=== PATIENT | female | born 1985 | race Caucasian/White ===

== ENCOUNTER 2025-01-18 09:51 | Emergency (ER) | payer BC, SELFPAY ==
[2025-01-18 09:51] VITALS: BMI 60.5
[2025-01-18 10:08] VITALS: BP 207/102
[2025-01-18 10:48] VITALS: BP 173/114
--- NOTE | 2025-01-18 11:42 | ED.GENMED ---
History of Present Illness
General
Chief Complaint: Fall
Source: patient
Exam Limitations: none
Time Seen by Provider: 01/18/25 10:11
Nursing documentation reviewed up to this point in time: agreed with
History of Present Illness
History of Present Illness:
Patient is a 40-year-old female who presents to the emergency department for evaluation of headache and right shoulder pain after mechanical fall yesterday. Patient states that she was in the shower when she slipped falling backwards striking her
head on the water spot in her right scapular area on the tile. She denies any loss of consciousness. She has had lingering headache, brain fog, light sensitivity, and dizziness since. She also reports some pain in her right scapular area, which
is worse with movement.
She denies any vomiting, double vision, ataxia. No neck or back pain. No numbness/tingling or weakness in extremities. She has been ambulating without difficulty.
Patient does have a history of past concussions
Review of Systems
Review of Systems
Allergies reviewed?: Yes
All Other Systems: ROS reviewed and negative except as documented in HPI and ROS
Phy Exam
Physical Exam
Physical Exam:
Vitals: Hypertensive, otherwise vital signs stable. Afebrile
General: Patient is well appearing, no acute distress
Skin: Warm and dry, no rashes or lesions
Head: Normocephalic, atraumatic
Eyes: Sclera nonicteric. EOMs intact. Pupils equal round and reactive to light bilaterally. No nystagmus.
Throat: Protecting airway
Neck: Normal ROM, no cervical spine tenderness, no meningismus
Cardiac: Regular rate and rhythm, no murmurs.
Pulm: Normal respiratory effort, no wheezes, rales, rhonchi heard on exam
Abdomen: No abdominal tenderness.
Back: Mild reproducible tenderness in right scapular area without any obvious deformity or ecchymoses. Some tenderness noted in right posterior lower ribs without crepitus.
Extremities: No evidence of cyanosis or edema. Bilateral upper and lower extremities atraumatic and nontender with full range of motion. Palpable equal peripheral pulses bilaterally
Neuro: AAOx3. CN II-XII grossly intact. Normal [id number]. Strength 5/5 in bilateral upper and lower extremity
Psychiatric: Normal affect.
Course
Orders/Labs/Results
Orders:
Orders
01/18/25 11:02
CT Head W/o Iv Contrast Urgent
Comment:
Reason For Exam: fall, headstrike
Test Result ONCE
Ribs, Right 3 View W/PA Chest [CR Ribs-right 3 Vw W/pa Chest*] Urgent
Comment:
Reason For Exam: fall, rib pain
Shoulder, Right 2 Views [CR Shoulder - Right Min 2 View] Urgent
Comment:
Reason For Exam: fall, scapular pain
01/18/25 11:53
Beta Hcg Urine Qualitative Screen [HCG, Urine Qualitative Screen] Urgent
Date Specimen was Collected: 01/18/25
Time Specimen was Collected: 11:27
Vital Signs
Initial and Last Documented VS:
Initial Vital Signs
Temp Pulse Resp BP Pulse Ox
98.9 F 92 16 207/102 98
01/18/25 10:08 01/18/25 10:08 01/18/25 10:08 01/18/25 10:08 01/18/25 10:08
Last Documented Vital Signs
Temp Pulse Resp BP Pulse Ox
98.9 F 72 22 159/68 99
01/18/25 10:08 01/18/25 12:35 01/18/25 12:35 01/18/25 12:35 01/18/25 12:35
MDM/Problems Addressed
Differential Diagnosis Includes:
Not limited to: Concussion, contusion, doubt intracerebral hemorrhage, shoulder contusion, rib fracture, etc.
MDM/Problems Addressed:
40-year-old female with headache and right shoulder pain after mechanical slip and fall yesterday. No vomiting, visual changes, ataxia. Vitals and physical exam as above. Patient overall well-appearing in no apparent distress. She has no
evidence of significant head trauma. She is neurologically intact with any focal deficits on exam. Mild tenderness noted to right scapular area as well as right posterior ribs. Lungs clear bilaterally.
Based on mechanism and physical exam�low suspicion for acute traumatic intracranial injury. Did discuss holding off on CT scan and closely monitoring symptoms at home however after shared decision making, patient would feel most comfortable
obtaining CT scan in emergency department today.
ED plan: Head CT, x-ray of right shoulder and right rib series.
Update: Imaging without findings of acute traumatic injuries. Ultimately suspect concussion as well as contusion to right scapular region. She remains well-appearing in no distress. Feel stable for discharge home with supportive care and primary
care follow-up. Return precautions discussed. Patient comfortable with plan.
Chronic conditions affecting care:
N/A
Acute Exacerbation and/or Progression of Chronic Illness:
N/A
*Radiology
Radiology exam reviewed: radiology read reviewed
*Pulse Oximetry
SaO2: 98
Oxygen Mode of Delivery: Room air
Patient hypoxic: no
*EKG
Interpreted by ED Provider?: NA
*Masseur/Masseuse Interpretation
Rate: Masseur/Masseuse- N/A
*Critical Care Note
Total Time (30-74mins, 75-104mins- exclusive of procedures): Not Applicable
ED Attending Note
-
Portions of this chart may have been created with voice recognition software.� Occasional wrong word or��sound alike� substitutions may have occurred due to the inherent limitations of voice recognition software.
Discharge Plan
Departure
Patient Disposition: Home (Routine Discharge)
Date of Disposition: 01/18/25
Time of Disposition: 12:50
Patient with high blood pressure during this ER visit?: Yes
Condition: Good
Discharge Problem:
Fall, Concussion, Contusion of right scapula
Instructions: Concussion, Adult (DC), BLOOD PRESSURE
Referrals:
Hugh Lopez MD [Family Provider, Internal Medicine] - Follow up in 5-7 days
Stand Alone Forms: Return to Work
Activity Restrictions/Additional Instructions:
RETURN TO THE EMERGENCY DEPARTMENT WITH ANY SEVERE HEADACHE OR NECK PAIN, INTRACTABLE NAUSEA/VOMITING, PERSISTENT DIZZINESS OR LIGHTHEADEDNESS, NUMBNESS/TINGLING OR WEAKNESS IN EXTREMITIES, WORSENING IN CURRENT SYMPTOMS, OR ANY OTHER CONCERNS
- As discussed�your imaging showed no evidence of acute traumatic injuries. You likely sustained a minor concussion as well as a contusion to your right scapula.
- It is important stay well-hydrated and to plenty rest. Take Tylenol and/or Motrin as needed for pain.
- Follow-up with your primary care doctor for further evaluation/management to ensure that your symptoms improve
Monitor your symptoms closely and return to the emergency with any acute worsening/new symptoms or any other concerns
Interventions
Interventions:
*Risk Screen - Suicide Last Done: 01/18/25 11:54
*General Assessment Last Done: 01/18/25 11:54
*Neglect/Abuse Screening Last Done: 01/18/25 11:54
*ED- Fall Risk Assessment Last Done: 01/18/25 11:54
*Nursing Disposition Last Done: 01/18/25 13:05
ED-Musculoskeletal Assessment Last Done: 01/18/25 10:49
ED- Neurological Assessment Last Done: 01/18/25 10:48
ED-Skin Assessment Last Done: 01/18/25 10:48
Discharge Date and Time
Discharge Date/Time: 01/18/25 13:05
Print Language: GEORGIAN
[2025-01-18 12:27] LABS: HCG, Urine Qualitative Screen Negative
[2025-01-18 12:35] VITALS: BP 159/68
== END 2025-01-18 13:05 | disposition home or self-care (01) ==
LOC: EMR 09:51
PROVIDERS: Physician Assistant; EMERGENCY PHYSICIAN Emergency Medicine; FAMILY PHYSICIAN Internal Medicine
DX: S06.0XAA Concussion with loss of consciousness status unknown, initial encounter (principal); S40.011A Contusion of right shoulder, initial encounter; W01.0XXA Fall on same level from slipping, tripping and stumbling without subsequent striking against object, initial encounter
CPT/HCPCS: 99284; 70450; 71101; 73030; 81025